=== PATIENT | female | born 1965 | race Hispanic/Latino ===

== ENCOUNTER 2020-08-31 05:39 | Day surgery (SDC) | payer BC, OTHER ==
[2020-08-30 14:36] VITALS: BP 122/58
[2020-08-30 14:39] LABS: EOSINOPHILS % (AUTO) 1.6 % (0.0-8.0); LYMPHOCYTES % (AUTO) 21.7 % (21.0-51.0); MEAN CORPUSCULAR HEMOGLOBIN 26.4 pg (27.0-33.0); MEAN CORPUSCULAR VOLUME 82.6 fL (79-99); MONOCYTES % (AUTO) 7.1 % (3.0-13.0); NEUTROPHILS % (AUTO) 68.3 % (40.0-77.0); PLATELET COUNT (AUTO) 234 K/uL (130-400); RED BLOOD CELL COUNT(AUTO) 4.84 MIL/uL (4.00-5.50); RED CELL DISTRIBUTION WIDTH 15.5 % (11.0-15.5); WHITE BLOOD COUNT (AUTO) 10.8 K/uL (4.8-10.8)
[2020-08-30 14:53] LABS: APPEARANCE,URINE Clear (CLEAR); BILIRUBIN,URINE Negative (NEGATIVE); COLOR,URINE Yellow (YELLOW); GLUCOSE, URINE (UA) Negative (NEGATIVE); KETONES,URINE Negative (NEGATIVE); LEUKOCYTE ESTERASE ,URINE Trace (NEGATIVE); NITRATE,URINE Negative (NEGATIVE); OCCULT BLOOD,URINE Negative (NEGATIVE); PH,URINE 7.5 (5.0-8.0); PROTEIN,URINE Negative (NEGATIVE)
[2020-08-30 14:56] LABS: INR 1.05 (0.85-1.15); PROTHROMBIN TIME 11.4 SEC (9.6-11.6)
[2020-08-30 14:57] LABS: PARTIAL THROMBOPLASTIN TIME 26.8 SEC (26.3-35.5)
[2020-08-30 14:58] LABS: CREATININE 0.8 mg/dL (0.5-1.5)
[2020-08-30 15:23] LABS: BACTERIA,URINE Few /HPF (None Seen); RBC,URINE None Seen /HPF (0-1); WBC,URINE 0-1 /HPF (0-1)
[~2020-08-31] VITALS: Ht 154.9 cm; Wt 87.5 kg
[2020-08-31] VITALS (11 sets, daily range): BP systolic 87–116; BP diastolic 43–69
[~2020-08-31 05:39] MED LIST: 0.9% NACL 500ML IV.SOLN 500 ML IV SCH; ALBU8.5H8 IH; ASPI-1197 PO; CITA10TA7 PO; DiphenhydrAMINE HCL 50 MG/ML VIAL IVP ONE; FAMOTIDINE 20MG VIAL IV ONE; FLUT16H NASAL; LOSA100T58 PO; LOVA20TA3 PO; METF-446 PO; MOME13HF IH; NALT50TA PO; OMEP40CA21 PO; SITA100T12 PO; SOLU-MEDROL 125MG VIAL IVP ONE; TIOT18CA3 IH; TOPI25TA48 PO; albuterol sulfate NEB
[2020-08-31] MEDS ORDERED: 0.9%NACL 1000ML 1,000 ML IV ONE (06:31)
[2020-08-31] MEDS ORDERED: SOLU-MEDROL 125MG VIAL ONE ×2 (06:55→07:35)
[2020-08-31] MEDS ORDERED: DiphenhydrAMINE HCL 50 MG/ML VIAL ONE (06:55)
[2020-08-31] MEDS ORDERED: BIVALIRUDIN 250 MG/VIAL IV ONE (07:19)
[2020-08-31] MEDS ORDERED: NITROGLYCERIN 2 MG VIAL IV ONE (07:19)
[2020-08-31] MEDS ORDERED: IOHEXOL-350 50ML VIAL IV ONE (07:19)
[2020-08-31] MEDS ORDERED: LIDOCAINE HCL 400MG/20ML VIAL ONE (07:20)
[2020-08-31] MEDS ORDERED: IOHEXOL 350 MG/ML 100ML INFUS..BTL IV ONE (07:20)
[2020-08-31] MEDS ORDERED: FENTANYL CITRATE PF 50 MCG/1 ML 2ML VIAL ONE (07:20)
[2020-08-31] MEDS ORDERED: MIDAZOLAM HCL 1 MG/ML 2ML VIAL ONE ×2 (07:20→07:36)
[2020-08-31] MEDS ORDERED: FAMOTIDINE 20MG VIAL IV SCH (07:30)
[2020-08-31] MEDS ORDERED: GLUCAGON 1MG KIT 1 MG ML IM PRN (08:30)
[2020-08-31] MEDS ORDERED: DEXTROSE 50%-WATER 50 ML DISP.SYRIN IV PRN (08:30)
[2020-08-31] MEDS: 0.9%NACL 1000ML 1,000 ML IV SCH ×2 (08:47→12:23)
[2020-08-31] MEDS ORDERED: INSULIN HUMULIN R 100 UNIT/ML 3ML SQ SCH (11:30)
== END 2020-08-31 12:27 | disposition home or self-care (01) ==
LOC: DAH 05:39
PROVIDERS: ATTEND Internal Medicine Cardiovascular Disease
DX: I20.0 Unstable angina (principal); Q25.0 Patent ductus arteriosus; I11.0 Hypertensive heart disease with heart failure; J45.909 Unspecified asthma, uncomplicated; I50.31 Acute diastolic (congestive) heart failure; E66.9 Obesity, unspecified; G47.33 Obstructive sleep apnea (adult) (pediatric); E11.59 Type 2 diabetes mellitus with other circulatory complications; E78.00 Pure hypercholesterolemia, unspecified; E78.5 Hyperlipidemia, unspecified; Z82.49 Family history of ischemic heart disease and other diseases of the circulatory system; Z90.710 Acquired absence of both cervix and uterus; Z98.890 Other specified postprocedural states; Z88.3 Allergy status to other anti-infective agents; Z79.01 Long term (current) use of anticoagulants; Z79.82 Long term (current) use of aspirin; Z79.899 Other long term (current) drug therapy
CPT/HCPCS: 36415 ×2; 71045; 80048; 81001; 82948 ×3; 84132; 85025; 85610; 85730; 93005; 93458; A4215; A4216; A4221; A4222; A4223 ×3; A4335; A4554; A4606; A4663; C1760; C1894 ×2; J1200; J1644; J2250; J2930 ×2; J3490 ×3; J7030; Q9965; Q9967 ×2; 99156; 99157; J0583; J3010